=== PATIENT | female | born 1980 | race Caucasian/White ===

== ENCOUNTER 2016-11-05 09:22 | Emergency (ER) | payer BC ==
[2016-11-05 09:58] VITALS: BP 122/86
--- NOTE | 2016-11-05 10:20 | UC ---
Throat Pain/Nasal Jose HPI - HPI Summary HPI Summary: pt presents with c/o sore throat X 2 days. reports that she began to feel "achy " 2 aches ago and woke up with sore throat, chills, and generalized body aches. Pt did not get a flu vaccine this year. - History of Current Complaint Chief Complaint: UCRespiratory Stated Complaint: SORE THROAT Time Seen by Provider: 11/05/16 10:07 Hx Obtained From: Patient Hx Last Menstrual Period: 10/12/16 ?: No Onset/Duration: Sudden Onset, Lasting Days Severity: Mild Associated Signs & Symptoms: Positive: Dysphagia, Fever - Allergies/Home Medications Allergies/Adverse Reactions: Allergies Allergy/AdvReac Type Severity Reaction Status Date / Time environmental Allergy Runny Nose Uncoded 11/05/16 09:58 Home Medications: Home Medications Cholecalciferol [Vitamin D] 1,000 unit PO DAILY 11/05/16 [History Confirmed ] Multiple Vitamins W/ Minerals [Emergen-C Immune] 1 mikal PO ONCE 11/05/16 [ History Confirmed 11/05/16] Multivitamins/Minerals TAB* [Thera M Plus TAB*] 1 tab PO DAILY 11/05/16 [ History Confirmed 11/05/16] PMH/Surg Hx/FS Hx/Imm Hx Previously Healthy: Yes - Surgical History Surgical History: None - Family History Known Family History: Positive: Other - Denies [facility] for strep throat - Social History Lives: With Family Alcohol Use: Occasionally Substance Use Type: Excessive Caffeine Smoking Status (MU): Former Smoker Review of Systems Constitutional: Fever, Chills Skin: Negative Eyes: Negative ENT: Sore Throat Respiratory: Negative Cardiovascular: Negative Gastrointestinal: Negative Genitourinary: Negative Motor: Negative Neurovascular: Negative Musculoskeletal: Myalgia Neurological: Negative Psychological: Negative All Other Systems Reviewed And Are Negative: Yes Physical Exam Triage Information Reviewed: Yes Appearance: Well-Appearing Vital Signs: Initial Vital Signs Temp 100.2 F 11/05/16 09:49 Pulse 120 11/05/16 09:49 Resp 20 11/05/16 09:49 BP 122/86 11/05/16 09:49 Pulse Ox 100 11/05/16 09:49 Eye Exam: Normal ENT Exam: Other ENT: Positive: Pharyngeal erythema Neck exam: Normal Respiratory Exam: Normal Cardiovascular Exam: Normal Abdominal Exam: Normal Musculoskeletal Exam: Normal Neurological Exam: Normal Psychological Exam: Normal Skin Exam: Normal Throat Pain/Nasal Course/Dx - Differential Dx/Diagnosis Differential Diagnosis/HQI/PQRI: Influenza, Pharyngitis, URI Provider Diagnoses: pharyngitis. viral syndrome Discharge - Discharge Plan Condition: Stable Disposition: HOME Patient Education Materials: Pharyngitis (ED) Referrals: [facility] [Outside] Additional Instructions: Please follow up with your PCP or return to clinic as needed. We have provided you a referral to a [facility] care provider if you are in need of a PCP.
== END 2016-11-05 10:42 | disposition home or self-care (01) ==
LOC: UCCORT 09:22
DX: B34.9 Viral infection, unspecified (principal); J02.9 Acute pharyngitis, unspecified; Z87.891 Personal history of nicotine dependence
CPT/HCPCS: 87651; 99201; G0463

== ENCOUNTER 2016-11-11 16:31 | Emergency (ER) | payer BC ==
[2016-11-11 18:59] VITALS: BP 107/66
--- NOTE | 2016-11-11 19:00 | UC ---
Respiratory Complaint HPI - HPI Summary HPI Summary: 36 yo female had the flu over a week ago/got better then developed severe sinus pressure and pain no cp or sob feels feverish no n/v - History of Current Complaint Chief Complaint: UCGeneralIllness Stated Complaint: FLU LIKE SYMPTOMS Time Seen by Provider: 11/11/16 18:32 Hx Obtained From: Patient Hx Last Menstrual Period: 11/07/16 Onset/Duration: Sudden Onset, Lasting Weeks Timing: Constant Severity Initially: Severe Severity Currently: Moderate Pain Intensity: 4 Character: Cough: Nonproductive Aggravating Factors: Nothing Alleviating Factors: Nothing Associated Signs And Symptoms: Positive: Fever - [place], URI, Nasal Congestion, Hoarseness, Sinus Discomfort - Allergies/Home Medications Allergies/Adverse Reactions: Allergies Allergy/AdvReac Type Severity Reaction Status Date / Time Penicillins Allergy Hives Verified 11/11/16 18:18 environmental Allergy Runny Nose Uncoded 11/05/16 09:58 PMH/Surg Hx/FS Hx/Imm Hx Previously Healthy: Yes - Surgical History Surgical History: None - Family History Known Family History: Positive: Other - Denies [facility] for strep throat Negative: Cardiac Disease, Hypertension, Diabetes - Social History Alcohol Use: None Substance Use Type: None Smoking Status (MU): Never Smoked Tobacco Review of Systems Constitutional: Fever - iah Skin: Negative Eyes: Negative ENT: Nasal Discharge Respiratory: Cough Cardiovascular: Negative Gastrointestinal: Negative Genitourinary: Negative Motor: Negative Neurovascular: Negative Musculoskeletal: Negative Neurological: Headache - facial pressure and pain Psychological: Negative All Other Systems Reviewed And Are Negative: Yes Physical Exam Triage Information Reviewed: Yes Appearance: Well-Appearing, No Pain Distress, Well-Nourished Vital Signs: Initial Vital Signs Temp 99.6 F 11/11/16 18:24 Pulse 96 11/11/16 18:24 Resp 16 11/11/16 18:24 BP 107/66 11/11/16 18:24 Pulse Ox 98 11/11/16 18:24 Vital Signs Reviewed: Yes Eyes: Positive: Conjunctiva Clear ENT: Positive: Hearing grossly normal, Nasal congestion, Nasal drainage, TMs normal, Other: - r>l max sinus tenderness. Negative: Trismus, Muffled/hoarse voice Dental Exam: Normal Neck: Positive: Supple, Nontender, No Lymphadenopathy Respiratory: Positive: Lungs clear, Normal breath sounds, No respiratory distress, No accessory muscle use Cardiovascular: Positive: RRR, No Murmur Musculoskeletal: Positive: ROM Intact, No Edema Neurological: Positive: Alert Psychological Exam: Normal Skin Exam: Normal UC Diagnostic Evaluation - Laboratory O2 Sat by Pulse Oximetry: 98 - normal/not hypoxic Respiratory Course/Dx - Differential Dx/Diagnosis Provider Diagnoses: acute sinusitis Discharge - Discharge Plan Condition: Stable Disposition: HOME Prescriptions: Fluticasone NASAL SPRAY 50MCG* [Flonase NASAL SPRAY 50MCG*] 2 spray BOTH NARES DAILY #1 btl ceFUROXime TAB(*) [Ceftin TAB(*)] 250 mg PO BID #20 tab Patient Education Materials: Sinusitis (ED) Referrals: No Primary Care Phys,NOPCP [Primary Care Provider] - Additional Instructions: sline nasal spray recheck next week if not better
== END 2016-11-11 18:56 | disposition home or self-care (01) ==
LOC: UCCORT 16:31
DX: J01.90 Acute sinusitis, unspecified (principal); Z88.0 Allergy status to penicillin
CPT/HCPCS: 99212; G0463